=== PATIENT | female | born 1975 | race Caucasian/White ===

== ENCOUNTER 2016-07-22 17:24 | Emergency (ER) | payer MEDICAID ==
[2016-07-22] MEDS ORDERED: ONDANSETRON 4 MG/2 ML VIAL ONE (17:41)
[2016-07-22] MEDS ORDERED: NS 1,000 ML IV ONE ×2 (17:42→18:21)
[2016-07-22] MEDS ORDERED: ONDANSETRON 4 MG/2 ML VIAL IVP ONE ×2 (17:42→19:44)
--- NOTE | 2016-07-22 17:51 | EDPHY ---
H & P Smoking Status: Never smoked Time Seen by Provider: 07/22/16 17:30 HPI/ROS: CHIEF COMPLAINT: Vomiting, diarrhea HISTORY OF PRESENT ILLNESS: 41-year-old female presents to the emergency department by private vehicle with multiple episodes of vomiting and diarrhea since early this morning. 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 She has vomited at least 5 or 6 times and has had at least 10 episodes of watery diarrhea. She denies hematemesis or blood in her stool. She has mild diffuse abdominal cramping. She has some low back discomfort as well. Her last menstrual period is 3 weeks ago and she is unsure if she is . She denies chest pain or difficulty breathing. Denies headache. Denies any reported trauma. No known ill contacts. No recent travel. REVIEW OF SYSTEMS: Constitutional: No fever, no chills. Eyes: No double or blurry vision. ENT: No sore throat. Respiratory: No cough, no shortness of breath. Cardiac: No chest pain. Gastrointestinal: As above Genitourinary: No dysuria. Musculoskeletal: No neck or back pain. Skin: No rashes. Neurological: No headache. (Zaira Jj) Past Medical/Surgical History: Cholecystectomy, x4 (Zaira Jj) Social History: , originally from [place], works at [employer] in housekeeping (Zaira Jj) Physical Exam: General Appearance: Alert, no distress. Afebrile. No apparent distress. Eyes: Pupils equal and round. Extraocular motions are all intact. ENT: Mouth: Mucous membranes moist. Respiratory: No wheezing, rhonchi, or rales, lungs are clear to auscultation. Cardiovascular: Regular rate and rhythm. Gastrointestinal: Abdomen is soft, obese. She has diffuse tenderness with palpation although mild. No peritoneal signs. No rebound, guarding or masses noted. No CVA tenderness bilaterally. Neurological: Alert and oriented x 3, cranial nerves II through XII grossly intact Skin: Warm and dry, no rashes. Musculoskeletal: Nontender to palpate along the cervical, thoracic or lumbar spine. Neck is supple. Extremities: Full range of motion and no peripheral edema. Psychiatric: Patient is oriented X 3, there is no agitation. (Zaira Jj) Constitutional: Initial Vital Signs Temperature (C) 36.6 C 07/22/16 17:25 Heart Rate 123 H 07/22/16 17:25 Respiratory Rate 18 07/22/16 17:25 Blood Pressure 141/92 H 07/22/16 17:25 O2 Sat (%) 95 07/22/16 17:25 O2 Delivery Mode Room Air Allergies/Adverse Reactions: No Known Allergies Allergy (Unverified 07/22/16 17:29) Home Medications: Medication Instructions Recorded NK [No Known Home Meds] 07/22/16 Medical Decision Making ED Course/Re-evaluation: 41-year-old female presents with multiple episodes of vomiting and diarrhea that began early this morning. Laboratory studies were all within normal limits with the exception of her random blood sugar being 351. The patient has a history of gestational diabetes when she was with her children. The patient was given primary care referral for follow-up regarding her elevated blood sugar. I explained to the patient that she will require fasting blood sugar as well as further testing and evaluation for diabetes. Patient verbalized understanding and agreed. The patient had IV established and was given IV normal saline, Zofran x2 doses and ultimately was given Reglan 10 mg IV. Upon discharge she was feeling much better and is tolerating p.o. fluids. I do not think this patient has an acute abdomen. She is afebrile. I do not think imaging studies are necessary. (Zaira Jj) Differential Diagnosis: Including but not limited to viral gastroenteritis, dehydration, acute appendicitis, bowel obstruction, peptic ulcer disease, GERD (Zaira Jj) Other Provider: PHYSICIAN DOCUMENTATION: The patient was evaluated and managed by the Physician Agricultural Research Technician and myself. I have reviewed the chart and agree with the findings and plan of care as documented. In addition, I examined the patient myself at 1825. History confirmed as recently moved up from [place], vomiting and diarrhea today. Gestational diabetes with previous only. Discussed her elevated blood sugar, and mandatory follow-up with [facility], has Medicaid , further evaluation and treatment as outpatient for probable diabetes. Followup within next week. HR down to around 100 with fluids, not acidotic. I am the secondary supervising physician. (Kev Hurt) - Data Points Laboratory Results: Laboratory Results 07/22/16 17:40 07/22/16 17:40 07/22/16 17:40 Sodium 134 mEq/L mEq/L (134-144) Potassium 4.0 mEq/L mEq/L (3.5-5.2) Chloride 100 mEq/L mEq/L (97-110) Carbon Dioxide 22 mEq/l mEq/l (22-31) Anion Gap 12 mEq/L mEq/L (8-16) BUN 12 mg/dL mg/dL (7-23) Creatinine 0.6 mg/dL mg/dL (0.6-1.0) Estimated GFR > 60 Glucose 351 mg/dL H mg/dL (70-100) Calcium 8.7 mg/dL mg/dL (8.5-10.4) Medications Given: Discontinued Medications Sodium Chloride (Ns) 1,000 mls @ 0 mls/hr IV ONCE ONE PRN Reason: Wide Open Stop: 07/22/16 17:43 Last Admin: 07/22/16 17:43 Dose: 1,000 mls Sodium Chloride (Ns) 1,000 mls @ 0 mls/hr IV ONCE ONE PRN Reason: Wide Open Stop: 07/22/16 18:22 Last Admin: 07/22/16 18:21 Dose: 1,000 mls Metoclopramide HCl (Reglan Injection) 10 mg IVP EDNOW ONE Stop: 07/22/16 20:16 Last Admin: 07/22/16 20:20 Dose: 10 mg Ondansetron HCl (Zofran) 4 mg IVP EDNOW ONE Stop: 07/22/16 17:43 Last Admin: 07/22/16 17:43 Dose: 4 mg Ondansetron HCl (Zofran) 4 mg IVP EDNOW ONE Stop: 07/22/16 19:45 Last Admin: 07/22/16 19:49 Dose: 4 mg Departure - Departure Disposition: Home, Routine, Self-Care Clinical Impression: Hyperglycemia, Gastroenteritis Condition: Good Instructions: Type 2 Diabetes in Adults (ED), Gastroenteritis (ED) Additional Instructions: Your random blood sugar today in the emergency department was 351. You need to establish care with a primary care provider and have this recheck. You likely have type 2 diabetes. This will need further testing an close follow-up with a primary care provider. Clear liquids and slowly advance diet as tolerated. Referrals: [facility],. [Clinic] - As per Instructions
[2016-07-22 17:52] LABS: % IMMATURE GRANULYOCYTES 0.4 % (0.0-1.1); ABSOLUTE IMMATURE GRANULOCYTES 0.03 10^3/uL (0.00-0.10); ADD DIFF? NO; ADD MORPH? NO; ADD SCAN? NO; ATYPICAL LYMPHOCYTE FLAG 0 (0-99); FRAGMENT RBC FLAG 0 (0-99); HEMATOCRIT 42.1 % (38.0-47.0); HEMOGLOBIN 13.5 g/dL (12.6-16.3); LEFT SHIFT FLG 0 (0-99); LIPEMIA HEMOLYSIS FLAG 80 (0-99); MEAN CELL HEMOGLOBIN 24.2 pg (27.9-34.1); MEAN CELL HEMOGLOBIN CONCENTR. 32.1 g/dL (32.4-36.7); MEAN CELL VOLUME 75.3 fL (81.5-99.8); PLATELET CLUMPS FLAG 0 (0-99); PLATELET COUNT 338 10^3/uL (150-400); RED BLOOD CELL COUNT 5.59 10^6/uL (4.18-5.33); RED CELL DISTRIBUTION WIDTH 14.4 % (11.5-15.2)
[2016-07-22 18:00] LABS: ANION GAP 12 mEq/L (8-16); CALCIUM 8.7 mg/dL (8.5-10.4); CARBON DIOXIDE 22 mEq/l (22-31); CHLORIDE 100 mEq/L (97-110); CREATININE 0.6 mg/dL (0.6-1.0); GLOMERULAR FILTRATION RATE > 60; GLUCOSE 351 mg/dL (70-100); SODIUM 134 mEq/L (134-144)
[2016-07-22 18:51] VITALS: TEMP 98.2
[2016-07-22] MEDS ORDERED: METOCLOPRAMIDE 10 MG/2 ML VIAL ONE (20:15)
[2016-07-22] MEDS ORDERED: METOCLOPRAMIDE 10 MG/2 ML VIAL IVP ONE (20:15)
[2016-07-22 21:10] VITALS: BP 130/70; PULSE 100; RESP 16; O2SAT 98
== END 2016-07-22 21:10 | disposition home or self-care (01) ==
DX: K52.9 Noninfective gastroenteritis and colitis, unspecified (principal); R73.9 Hyperglycemia, unspecified
CPT/HCPCS: 96374; J2405; J2765